=== PATIENT | female | born 1990 | race Caucasian/White ===

== ENCOUNTER 2021-05-12 12:00 | Emergency (ER) | payer OTHER ==
[2021-05-12 12:45] VITALS: BP 122/77
--- NOTE | 2021-05-12 13:08 | XRAY Report ---
PROCEDURE: Hand 3 View LT INDICATIONS: Trauma TECHNIQUE: 3 views of the hand(s) acquired. COMPARISON: None FINDINGS: Bones: No fractures or dislocations. No suspicious bony lesions. Soft tissues: No suspicious soft tissue calcifications. Radiodense foreign bodies noted in the soft tissues of the proximal palm. IMPRESSION: No fracture. No osseous lesion. If there are persistent symptoms or continued clinical concern for pa thology, then repeat plain film radiographs (7-10 days) or advanced imaging (CT, MR, bone scan) shoul d be considered for further evaluation. Reviewed by: Debbie Simeon MD, PhD on 05/12/2021 1:07 PM PDT Approved by: Debbie Simeon MD, PhD on 05/12/2021 1:07 PM PDT Station ID: [id number]
[2021-05-12] MEDS ORDERED: BACITRACIN ZINC OINT 1 PACKET TOP STA ×2 (13:48→14:33)
[2021-05-12] MEDS ORDERED: LIDOCAINE-EPINEPH-TETRACAINE 3 ML SYRINGE TOP STA (13:48)
[2021-05-12] MEDS ORDERED: IBUPROFEN 800 MG TABLET PO STA (14:02)
--- NOTE | 2021-05-12 14:04 | ED Physician Documentation ---
History of Present Illness - Stated complaint Stated Complaint: L HAND LAC - Chief complaint Chief Complaint: Laceration - History obtained from History obtained from: Patient - History of Present Illness Timing: How many hours ago (4) Pain level max: 5 Pain level now: 5 - Additonal information Additional information: Patient is a 31-year-old female who presents to the emergency department after a fall while running this morning. She states that she fell onto her outstretched left hand and onto her right knee. Has abrasions to the right knee and left hand. Worse with movement, better with rest. No head, neck, back pain. Concern for possible laceration to the palm. Tetanus up-to-date. She is [employer]. Review of Systems Constitutional: denies: Fever, Chills GI: denies: Vomiting, Diarrhea Musculoskeletal: denies: Neck pain, Back pain Neurologic: denies: Headache, Head injury PD PAST MEDICAL HISTORY - Past Medical History Past Medical History: No - Past Surgical History Past Surgical History: No - Present Medications Home Medications: Ambulatory Orders Medication Instructions Recorded Confirmed Bacitracin Zinc Oint 1 applic TOP BID #1 gm 05/12/21 HYDROcod/ACETAM 5/325 [Raymond 5/325] 1 - 2 ea PO Q6H PRN #10 tablet 05/12/21 - Allergies Allergies/Adverse Reactions: Allergies Allergy/AdvReac Type Severity Reaction Status Date / Time No Known Drug Allergies Allergy Verified 05/12/21 12:41 - Living Situation Living Situation: reports: With family Living Arrangement: reports: At home - Social History Does the pt have substance abuse?: No - Family History Family history: reports: Non contributory PD ED PE NORMAL - Vitals Vital signs reviewed: Yes - General General: Alert and oriented X 3, No acute distress - HEENT HEENT: Atraumatic, PERRL, Moist mucous membranes - Neck Neck: Supple, no meningeal sign, No bony TTP - Cardiac Cardiac: RRR - Respiratory Respiratory: No respiratory distress, Clear bilaterally - Abdomen Abdomen: Soft, Non tender, Non distended - Derm Derm: Warm and dry - Extremities Extremities: Other (Abrasion to the right knee. No bony tenderness. No active bleeding. There is also an abrasion with small skin avulsions to the left palm. No bony tenderness. No active bleeding.) - Neuro Neuro: Alert and oriented X 3 Results - Vitals Vitals: Vital Signs - 24 hr 05/12/21 12:41 Temperature 36.5 C Heart Rate 50 L Respiratory 16 Rate Blood Pressure 122/77 O2 Saturation 100 Oxygen O2 Source Room air - Rads (name of study) Left hand x-ray Radiology: Final report received, EMP read contemporaneously, See rad report (No acute abnormality. No fracture. No foreign body) PD MEDICAL DECISION MAKING - ED course Complexity details: reviewed results, re-evaluated patient, considered differential, d/w patient ED course: There are no suturable lacerations on the hand. The wounds were cleansed, bacitracin applied and bandaged. Tetanus up-to-date. No acute findings on x-ray. Warnings of infection and instructions on wound care given at bedside. Also counseled on how to minimize scarring. Patient counseled regarding signs and symptoms for which I believe and urgent re-evaluation would be necessary. Patient with good understanding of and agreement to plan and is comfortable going home at this time This document was made in part using voice recognition software. While efforts are made to proofread this document, sound alike and grammatical errors may occur. Departure - Departure Disposition: Home, Self Care Clinical Impression: Abrasion Condition: Good Instructions: ED Abrasion Follow-Up: your,doctor in 3 days for wound check [Other] Prescriptions: Bacitracin Zinc Oint 1 applic TOP BID #1 gm HYDROcod/ACETAM 5/325 [Raymond 5/325] 1 - 2 ea PO Q6H PRN #10 tablet PRN Reason: Pain Comments: Keep the wound clean. This will heal by what we call secondary intention. Up there is nothing to suture at this point. Return if you notice redness, swelling or drainage from the wound. It will be sore for the next several days. Please follow-up with your doctor in about 3 days for a wound check. You josefina uld change the dressing at least twice a day. I am prescribing a short course of narcotic pain medication for you. These are potentially dangerous and addictive medications that should be used carefully. These medications may constipate you. Take an fnnh-lnn-plhwjje stool softener (docusate) twice daily with plenty of water while taking these medications. If you go 24 hours without a bowel movement, take [id number] miralax, per package instructions. Do not drink or drive while taking these medications. If you received narcotic or sedating medications while in the emergency department, do not drive for 24 hours. Store this medication in a safe, secure place and out of reach of children. It is a violation of federal law to give or sell this medication to another person or to use in a manner other than prescribed. The ED will not refill narcotic prescriptions, including prescriptions lost or stolen. To dispose of unwanted medications: 1. [facility] [address] in [place] has a medication drop box. They accept prescription medications (in pill form) Tuesday through Tuesday 9:00 a.m. to 5:00 p.m. 2. [facility] [employer] accepts prescription medications (in pill form only) for disposal year round. Call for more information. 3. Contact the [facility] for the next [facility] sponsored prescription drug collection event. , [phone], or [phone]; Discharge Date/Time: 05/12/21 14:52
== END 2021-05-12 14:52 | disposition home or self-care (01) ==
LOC: ED 12:00
DX: S60.512A Abrasion of left hand, initial encounter (principal); S80.211A Abrasion, right knee, initial encounter; W01.0XXA Fall on same level from slipping, tripping and stumbling without subsequent striking against object, initial encounter; Y93.02 Activity, running
CPT/HCPCS: 73130; 99282; 99283; A9270